=== PATIENT | female | born 1990 | race Caucasian/White ===

== ENCOUNTER 2021-12-03 17:34 | Emergency (ER) | payer BC, MEDICAID, SELFPAY ==
--- NOTE | ~2021-12-03 | XR_ITS ---
EXAMINATION: XR chest 1V portable DATE: 12/03/2021 18:50 INDICATION: Shortness of breath. Cough. TECHNIQUE: A single frontal view of the chest was obtained. COMPARISON: None. FINDINGS: The chest demonstrates clear lungs without pneumonia, pleural effusion, or pneumothorax. Th e heart size is normal. IMPRESSION: 1. No acute cardiopulmonary disease. Reviewed, dictated and finalized at location A.
[2021-12-03 17:37] VITALS: BP 120/79; PULSE 87; RESP 14; TEMP 36.1; O2SAT 97
--- NOTE | 2021-12-03 18:11 | ED_ITS ---
HPI - URI/Sore Throat General Chief Complaint: Upper Respiratory Infection Stated Complaint: Respiratory issues Time Seen by Provider: 12/03/21 18:05 History of Present Illness HPI Narrative: 31-year-old female presents emergency room complaints of shortness of breath, cough, wheezing for the past few days. Patient states that she has been using her rescue inhaler 3-4 times daily with some relief. Patient does have a history of asthma, and states that she typically does not use her rescue inhaler. Patient is also complaining of sinus congestion and postnasal drip. Patient denies chest pain, denies fever. Related Data Allergies Allergy/AdvReac Type Severity Reaction Status Date / Time latex Allergy Anaphylaxis Verified 12/03/21 18:55 Review of Systems Review of Systems: CONSTITUTIONAL: Denies fever, chills, or sweats. EYES: Denies visual changes, redness, or discharge. ENT: Denies rhinorrhea, congestion, sore throat, or otalgia. CARDIOVASCULAR: Denies chest pain, palpitations, or edema. RESPIRATORY: Reports cough and shortness of breath GASTROINTESTINAL: Denies abdominal pain, nausea, vomiting, or diarrhea. GENITOURINARY: Denies dysuria or hematuria. SKIN: Denies rash or itching. MUSCULOSKELETAL: Denies back pain, joint pain, or myalgia. NEUROLOGIC: Denies headache, numbness, dizziness, or weakness. PSYCHIATRIC: Denies anxiety or depression. [facility] Past Medical History Medical History (Updated 12/04/21 @ 09:26 by Marek Dixon, PATIENT FINANCIAL SERVICES SPECIALIST) Asthma Exam Narrative: GENERAL: Well-appearing, well-nourished, and in no acute distress. HEAD: Normocephalic, atraumatic. EYES: PERRLA and EOMI. CHEST: Wheezing to left upper lung field no respiratory distress. HEART: Regular rate and rhythm. No murmur heard. Normal peripheral pulses. ABDOMEN: Soft, nontender, nondistended, normal active bowel sounds. EXTREMITIES: Normal range of motion. No edema. SKIN: Warm, dry, no rash. NEURO: No focal deficits. Alert and oriented x3. PSYCH: Normal mood and affect. Course Vital Signs Vital signs: Vital Signs Temperature 36.1 C L 12/03/21 17:37 Pulse Rate 87 12/03/21 17:37 Respiratory Rate 14 12/03/21 17:37 Blood Pressure 120/79 05/13/22 17:37 Pulse Oximetry 97 12/03/21 17:37 Temperature 36.1 C L 12/03/21 17:37 Pulse Rate 91 12/03/21 19:47 Respiratory Rate 18 12/03/21 19:47 Blood Pressure 109/66 12/03/21 19:47 Pulse Oximetry 100 12/03/21 19:47 MDM - URI/Sore Throat Lab Data Labs: Lab Results 12/03/21 Range/Units 18:28 SARS-CoV-2 RNA (RT-PCR) Negative Discharge Plan Discharge Clinical Impression: Asthma exacerbation, Upper respiratory infection Patient Disposition: Home, Self-Care Condition: Stable Instructions: Antibiotic Form, Asthma (ED) Prescriptions: New albuterol sulfate 90 mcg/actuation HFA aerosol inhaler 1 inh inhalation QID Qty: 8.5 RF: 0 prednisone 20 mg tablet 40 mg PO DAILY 5 Days Qty: 10 RF: 0 Follow-up/Referrals: PHYSICIAN NOT ON STAFF,NONSTAFF [Primary Care Provider] - Time of Disposition: 19:28
[2021-12-03] MEDS: ALBUTEROL SULFATE NEB 2.5 MG/3 ML INH INHALATION ×2 (18:24→18:35)
[2021-12-03] MEDS: IPRATROPIUM BR 0.02% INH SOLN 0.5 MG/2.5 ML VIAL INHALATION (18:24)
[2021-12-03 19:09] LABS: SARS-CoV-2 RNA PCR Negative
[2021-12-03 19:47] VITALS: BP 109/66; PULSE 91; RESP 18; O2SAT 100
--- NOTE | 2021-12-03 19:49 | PC.NURSE ---
this rn spoke with rt to clarify that the medications were all given and that the patient was able to be discharged. per male rt, all meds were given and the charting would be corrected.
== END 2021-12-03 19:49 | disposition home or self-care (01) ==
PROVIDERS: Emergency Provider Nurse Practitioner Family
DX: J45.901 Unspecified asthma with (acute) exacerbation (principal); J06.9 Acute upper respiratory infection, unspecified; Z20.822 Contact with and (suspected) exposure to COVID-19
CPT/HCPCS: 71045; 94640; 96372; 99283; C9803; J1100; U0003; U0005

== ENCOUNTER 2023-05-10 07:55 | Day surgery (SDC) | payer BC, MEDICAID, SELFPAY ==
[2023-05-10] VITALS (12 sets, daily range): BP systolic 97–162; BP diastolic 53–92; PULSE 51–71; RESP 12–24; TEMP 36.3–36.6; O2SAT 96–100
--- NOTE | ~2023-05-10 | CT_ITS ---
EXAMINATION: CT abdomen pelvis w con DATE: 05/10/2023 10:07 INDICATION: Left flank and left lower quadrant abdominal pain TECHNIQUE: Computed tomography (CT) of the abdomen and pelvis was performed with 100 CC Omnipaque 350 intravenous contrast. Automated exposure control and iterative reconstruction technique were employe d. Exam dose: 382.90 mGy-cm total exam DLP. COMPARISON: None. FINDINGS: The lung bases are clear of infiltrate or consolidation. Left lower lobe probable calcified pulmonary granulomas. Normal heart size. No pericardial or pleural effusion. Small sliding hiatal hernia. The liver, gallbladder, bile ducts, spleen, pancreas, pancreatic duct and adrenal glands appear chiquita l. There is an approximately 2 mm distal left ureteral calculus with moderate left hydroureteronephrosis . There is perinephric and periureteral fluid on the left. Numerous bilateral nonobstructing renal calculi. No right ureteral calculus or right-sided hydrourete ronephrosis. The urinary bladder, uterus and adnexal areas are unremarkable. Normal caliber of the abdominal aorta. No intraperitoneal or retroperitoneal or pelvic mass lesion or adenopathy or ascites. Normal appendix. No bowel obstruction or intraperitoneal free air. Small fat-containing umbilical hernia. Included skeletal structures are unremarkable. IMPRESSION: 2 mm distal left ureteral obstructing calculus with moderate left hydronephrosis and lef t perinephric and periureteral fluid Reviewed, dictated and finalized at Location [facility]. Reviewed, dictated and finalized at location B. IMPRESSION: 2 mm distal left ureteral obstructing calculus with moderate left hydronephrosis and left perinephric and periureteral fluid
--- NOTE | ~2023-05-10 | XR_ITS ---
EXAMINATION: XR retrograde pyelogram LT DATE: 05/10/2023 16:18 INDICATION: Left ureteral stone. TECHNIQUE: 6 intraoperative fluoroscopic views of the abdomen and pelvis were obtained. I was not pre sent. Fluoroscopy exposure time was 22 seconds. COMPARISON: CT abdomen and pelvis 05/10/2023 FINDINGS: The left-sided retrograde pyelogram is unremarkable. IMPRESSION: 1. Normal left-sided retrograde pyelogram. Reviewed, dictated and finalized at location E.
[2023-05-10 09:14] LABS: Basophils Absolute Auto 0.1 K/mm3 (0.0-0.1); Basophils Percent Auto 0.3 % (0.2-1.2); Eosinophils Absolute Auto 0.2 K/mm3 (0-0.3); Eosinophils Percent Auto 1.6 % (0-4.4); Hematocrit 41.4 % (37.0-47.0); Hemoglobin 13.2 g/dL (12.0-15.0); Immature Granulocyte Absolute 0.07 K/mm3 (0.00-0.031); Immature Granulocyte Percent A 0.5 % (0-0.5); Lymphocytes Absolute Auto 1.32 K/mm3 (0.9-3.2); Lymphocytes Percent Auto 8.9 % (18.3-44.2); Mean Corpuscular HGB Conc 31.9 g/dl (32-36); Mean Corpuscular Hemoglobin 29.5 pg (26-34); Mean Corpuscular Volume 92.4 fl (80-100); Mean Platelet Volume 10.6 fl (7.4-10.4); Monocytes Absolute Auto 0.8 K/mm3 (0.1-0.6); Monocytes Percent Auto 5.4 % (2.6-8.5); Neutrophils Absolute Auto 12.3 K/mm3 (1.3-6.7); Neutrophils Percent Auto 83.3 % (45.5-73.1); Platelet Count Result 248 k/mm3 (150-375); Red Blood Count 4.48 M/mm3 (4.2-5.4); Red Cell Distribution Width 12.2 % (11.5-14.5); White Blood Count 14.8 K/mm3 (4.5-10.0)
[2023-05-10 09:24] LABS: Alanine Aminotransferase 32 U/L (6-35); Albumin Level 4.7 g/dL (3.5-5.1); Alkaline Phosphatase 115 U/L (38-126); Anion Gap 11 mmol/L (8-16); Aspartate Amino Transferase 31 U/L (14-36); Bilirubin,Total 0.8 mg/dL (0.2-1.3); Blood Urea Nitrogen 18 mg/dL (7-17); Calcium 9.8 mg/dL (8.4-10.2); Carbon Dioxide 25 mmol/L (22-30); Chloride 104 mmol/L (98-107); Estimated CRCL calculation 84 ml/min; Estimated Glomerular Filt Rate > 60; Glucose 125 mg/dL (65-110); Potassium 3.8 mmol/L (3.4-5.0); Sodium 140 mmol/L (137-145)
[2023-05-10] MEDS: SODIUM CHLORIDE 0.9% IV 1,000 ML 999 ML IV CONT ×2 (09:45→11:02)
--- NOTE | 2023-05-10 09:50 | ED.ABDPAIN ---
HPI - Abdominal Pain General Chief Complaint: Abdominal Pain Stated Complaint: low back and abd pain Time Seen by Provider: 05/10/23 09:08 History of Present Illness HPI narrative: 32-year-old female reports for evaluation for sudden onset left flank pain and left lower quadrant abdominal pain this morning. She reports associated nausea, no emesis. Denies chest pain or shortness of breath, fever, dysuria or hematuria, history of kidney stones. Patient states she is currently breast-feeding. She had a 7 months ago that was complicated by hematoma and had to undergo surgical evacuation. She has not had any complications since. Denies vaginal bleeding. Related Data Allergies Allergy/AdvReac Type Severity Reaction Status Date / Time latex Allergy Anaphylaxis Verified 05/10/23 08:09 Review of Systems Review of Systems: CONSTITUTIONAL: Denies fever, chills EYES: Denies visual changes, redness, or discharge. ENT: Denies rhinorrhea, congestion, sore throat, or otalgia. CARDIOVASCULAR: Denies chest pain, palpitations, or edema. RESPIRATORY: Denies cough or dyspnea. GASTROINTESTINAL: See HPI GENITOURINARY: Denies dysuria or hematuria. SKIN: Denies rash or itching. MUSCULOSKELETAL: See HPI NEUROLOGIC: Denies headache, numbness, dizziness, or weakness. PSYCHIATRIC: Denies anxiety or depression. [facility] Past Medical History Medical History Asthma Post depression Surgical History Surgical History S/P bone graft S/P Family History Family History Father High cholesterol Cancer Mother Hypertension Other Hypertension Social History Social History Smoking status: Never smoker Alcohol intake: current Exam Narrative: GENERAL: Patient resting in exam bed, appears uncomfortable. Nontoxic appearing. HEAD: Normocephalic EYES: PERRLA ENT: Nares clear. Mucous membranes moist. Oropharynx without tonsillar hypertrophy exudate or other lesions. NECK: Supple. CHEST: No respiratory distress. Clear to auscultation, no adventitious breath sounds. HEART: Regular rate and rhythm. No murmur heard. Normal peripheral pulses. ABDOMEN: Normal active bowel sounds. Abdomen soft with tenderness in the left lower quadrant. Positive left CVA tenderness. No rebound, guarding or rigidity. EXTREMITIES: Normal range of motion. No edema. SKIN: Warm, dry, no rash. NEURO: No focal deficits. Alert and oriented x3. PSYCH: Normal mood and affect. Course Vital Signs Vital signs: Vital Signs Temperature 98 F 05/10/23 07:58 Pulse Rate 65 05/10/23 07:58 Respiratory Rate 24 H 05/10/23 07:58 Blood Pressure 132/84 05/10/23 07:58 Pulse Oximetry 100 05/10/23 07:58 Oxygen Delivery Room Air 05/10/23 07:58 Temperature 98 F 05/10/23 07:58 Pulse Rate 65 05/10/23 07:58 Respiratory Rate 24 H 05/10/23 07:58 Blood Pressure 132/84 05/10/23 07:58 Pulse Oximetry 100 05/10/23 07:58 Oxygen Delivery Room Air 05/10/23 07:58 MDM - Abdominal Pain MDM Narrative Medical decision making narrative: 32-year-old female reports for evaluation for sudden onset left flank pain and left lower quadrant abdominal pain since this morning. See HPI for further history. Vital stable other than tachypnea of 24 on intake. She is afebrile but appears uncomfortable. Exam is significant for the above. Labs significant for leukocytosis of 14.8. Chemistries are largely unremarkable. Urinalysis shows hematuria and 1+ leuk esterase, no WBCs or bacteria. negative. Lipase normal. CT abdomen pelvis shows a 2 mm distal left ureteral obstructing calculus with moderate left hydronephrosis and left perinephric and periureteral fluid. Patient received Zofran, morp
[2023-05-10 10:06] LABS: Appearance Urine Cloudy (Clear); Bacteria Urine None Seen /hpf; Bilirubin Urine Negative (Negative); Blood Urine 3+ (Negative); Color Urine Yellow (Yellow); Glucose Urine UA Negative (Negative); Ketones Urine Negative (Negative); Leukocyte Esterase Ur 1+ LEU/UL (Negative); Need Manual Microscopic Reviewed; Nitrate Urine Negative (Negative); Non Pathogenic Casts 0-2; Protein Urine Negative (Negative); RBC Urine >100 /hpf (0-2); Specific Grav Ur 1.017 (1.001-1.035); Squamous Epithelial Cell Urine Occasional /hpf (Few); Urobilinogen Urine 0.2 mg/dL (<2.0); WBC Urine 0-5 /hpf; pH Urine 7.5 (5.0-9.0)
[2023-05-10 10:08] LABS: Add Urine Microscopic? YES
[2023-05-10] MEDS: ONDANSETRON INJ 4 MG/2 ML VIAL IV PUSH (10:09)
[2023-05-10] MEDS: MORPHINE SULFATE (*CRX) 4 MG/ML INJ IV PUSH (10:09)
[2023-05-10 10:28] LABS: Lipase 143 U/L (23-300)
[2023-05-10] MEDS: HYDROmorphone HCL INJ (*CRX) 1 MG/ML SYR 0.5 MG IV PUSH ×2 (11:02→13:05)
[2023-05-10] MEDS: LACTATED RINGERS 1,000 ML 30 ML IV CONT ×2 (12:00→16:21)
[2023-05-10] MEDS: ACETAMINOPHEN 500 MG TABLET 1000 MG PO (12:25)
--- NOTE | 2023-05-10 12:50 | WPDURCON ---
Assessment and Plan Assessment and plan (1) Ureterolithiasis: Code(s): N20.1 - Calculus of ureter Status: Acute Assessment and Plan: Pt. to have a Cystoscopy, left ureteroscopy with stone extraction, possible left stent placement, left retrograde pyelogram, possible holmium laser. Keep NPO. Obtain Consent. Pt. will be discharged home afterward. Urology Consult Note HPI Date Seen: 05/10/23 Time Seen: 12:51 Requesting Physician: Nicole Mcdonald MD Primary Care Provider: PHYSICIAN NOT ON STAFF Consult Narrative Reason for consult: Left Ureteral Stone Narrative: Margareth Winkler is a 32 year old female who presented to the ER today with worsening left flank pain that started 2 months ago. She is 7 months post and breast feeding and assumed she had back pain therefore she had been getting massages and has been seeing a chiropractor but has had no improvement. She woke up early this morning to pump and had severe left flank pain associated with nausea, chills and diaphoresis. She denies hematuria, dysuria, frequency, urgency to urinate or abdominal pain. She is afebrile and has a WBC of >14,000 and UA that shows RBC's and 1+ leukocytes. Her CT scan reveals a?2 mm distal left ureteral obstructing calculus with moderate left hydronephrosis and left perinephric and periureteral fluid. She has no history of kidney stones and drinks plenty of water. Review of Systems Cardiovascular: Cardiovascular: Denies chest pain Respiratory: Respiratory: Reports no additional respiratory complaints Gastrointestinal: Gastrointestinal: Denies abdominal pain, Reports nausea and Denies vomiting Genitourinary: Genitourinary: Denies hematuria, Denies nocturia, Denies dysuria, Reports flank pain, Denies urinary incontinence, Denies urinary hesitancy and Denies urinary urgency [facility] Past Medical History Medical History Asthma Post depression Surgical History Surgical History S/P bone graft S/P Family History Family History Father High cholesterol Cancer Mother Hypertension Other Hypertension Social History Social History Smoking status: Never smoker Alcohol intake: current Meds Home Medications and Allergies Home Medications Medication Instructions Recorded Confirmed Type hydrocodone 5 mg-acetaminophen 325 1 tablet PO Q4H PRN pain #5 tabs 08/25/22 08/25/22 Rx mg tablet Allergies Allergy/AdvReac Type Severity Reaction Status Date / Time latex Allergy Anaphylaxis Verified 05/10/23 08:09 Vital Signs Vital Signs - 24 hr 05/10/23 07:58 05/10/23 11:01 05/10/23 11:16 Temperature 98 F Pulse Rate 65 Respiratory Rate 24 H Blood Pressure 132/84 145/85 H 154/91 H Pulse Oximetry 100 100 97 Oxygen Delivery Room Air 05/10/23 11:30 05/10/23 11:46 Temperature Pulse Rate Respiratory Rate Blood Pressure 150/92 H 162/83 H Pulse Oximetry 96 97 Oxygen Delivery Exam Const: General: cooperative and in distress; No lethargic Resp: Effort & Inspection: normal respiratory effort Cardio: Rate: regular rate GI: GI Palp: Yes Soft to palpation and No Tenderness to palpation present (GI) : General: Yes CVA tenderness on the left Extrem: Right lower extremity: no edema Left lower extremity: no edema Results Labs 05/10/23 09:07 05/10/23 09:07 Labs: Short CBC 05/10/23 Range/Units 09:07 WBC 14.8 H (4.5-10.0) K/mm3 Hgb 13.2 (12.0-15.0) g/dL Hct 41.4 (37.0-47.0) % Plt Count 248 (150-375) k/mm3 BMP 05/10/23 09:07 Sodium 140 Potassium 3.8 Chloride 104 Carbon Dioxide 25 BUN 18 H Creatinine 0.80 Glucose 125 H Calcium 9.8 Liver Function 10
--- NOTE | 2023-05-10 12:57 | WPDHPUPDATE1 ---
History and Physical Update Update Date/Time: 05/10/23 12:57 History and Physical has been reviewed, including an updated exam of the patient. There are NO changes in the patient's condition. Risks, benefits, and alternatives have been discussed and questions answered. Patient agrees to proceed with procedure.
--- NOTE | 2023-05-10 13:12 | WPDANESEPPF ---
Anes - Initial Pre Proc Eval Procedure: Operation Date: 05/10/23 15:00 Proposed Procedures p Cystoscopy,Left Retrograde Pyelogram,Left Ureteroscopy,Left Stone Extraction,Possible Holmium Laser,Possible Stent Placement. - Nicole Mcdonald MD Date/Time: 05/10/23 13:12 Surgeon: Nicole Mcdonald MD Pre Op Diagnosis: low back and abd pain Patient Data Age: 32 Gender: F Height: 1.7 m Weight: 72.57 kg Last Vital Signs Temp 36.3 C L 05/10/23 12:50 Pulse 52 L 05/10/23 12:50 Resp 16 05/10/23 12:50 BP 152/85 H 05/10/23 12:50 Pulse Ox 98 05/10/23 12:50 O2 Del Method Room Air 05/10/23 07:58 Allergies Allergy/AdvReac Type Severity Reaction Status Date / Time latex Allergy Anaphylaxis Verified 05/10/23 08:09 Home Medications Medication Instructions Recorded Confirmed Type hydrocodone 5 mg-acetaminophen 325 1 tablet PO Q4H PRN pain #5 tabs 08/25/22 08/25/22 Rx mg tablet Laboratory Tests 05/10/23 05/10/23 09:07 09:47 WBC 14.8 H K/mm3 (4.5-10.0) RBC 4.48 M/mm3 (4.2-5.4) Hgb 13.2 g/dL (12.0-15.0) Hct 41.4 % (37.0-47.0) MCV 92.4 fl (80-100) MCH 29.5 pg (26-34) MCHC 31.9 L g/dl (32-36) RDW 12.2 % (11.5-14.5) Plt Count 248 k/mm3 (150-375) MPV 10.6 H fl (7.4-10.4) Immature Gran % (Auto) 0.5 % (0-0.5) Neut % (Auto) 83.3 H % (45.5-73.1) Lymph % (Auto) 8.9 L % (18.3-44.2) [place] % (Auto) 5.4 % (2.6-8.5) Eos % (Auto) 1.6 % (0-4.4) Baso % (Auto) 0.3 % (0.2-1.2) Lymph # (Auto) 1.32 K/mm3 (0.9-3.2) [place] # (Auto) 0.8 H K/mm3 (0.1-0.6) Eos # (Auto) 0.2 K/mm3 (0-0.3) Baso # (Auto) 0.1 K/mm3 (0.0-0.1) Abs Immat Gran (auto) 0.07 H K/mm3 (0.00-0.031) Absolute Neuts (auto) 12.3 H K/mm3 (1.3-6.7) Absolute Nucleated RBC 0.0 K/mm3 (0.0-0.012) Nucleated RBC % 0.0 % (0.0-0.2) Sodium 140 mmol/L (137-145) Potassium 3.8 mmol/L (3.4-5.0) Chloride 104 mmol/L (98-107) Carbon Dioxide 25 mmol/L (22-30) Anion Gap 11 mmol/L (8-16) BUN 18 H mg/dL (7-17) Creatinine 0.80 mg/dL (0.7-1.0) Estim Creat Clear Calc 84 ml/min Estimated GFR > 60 (59 - ) Glucose 125 H mg/dL (65-110) Calcium 9.8 mg/dL (8.4-10.2) Total Bilirubin 0.8 mg/dL (0.2-1.3) AST 31 U/L (14-36) ALT 32 U/L (6-35) Alkaline Phosphatase 115 U/L (38-126) Total Protein 8.0 g/dL (6.3-8.2) Albumin 4.7 g/dL (3.5-5.1) Lipase 143 U/L (23-300) Urine Color Yellow (Yellow) Urine Appearance Cloudy H (Clear) Urine pH 7.5 (5.0-9.0) Ur Specific [place] 1.017 (1.001-1.035) Urine Protein Negative mg/dL (Negative) Urine Glucose (UA) Negative mg/dL (Negative) Urine Ketones Negative mg/dL (Negative) Ur Blood (Man) 3+ H (Negative) Urine Nitrate Negative (Negative) Urine Bilirubin Negative (Negative) Urine Urobilinogen 0.2 mg/dL (<2.0) Add Ur Microanalysis Reviewed Leukocyte Esterase Rfl 1+ H JACQUIE/UL (Negative) Urine RBC >100 H /hpf (0-2) Urine WBC 0-5 /hpf Ur Squamous Epith Cells Occasional /hpf (Few) Urine Bacteria None seen /hpf Urine Casts 0-2 Patient hx anesthesia problems: none Family hx anesthesia problems: none Results Review: All pre-operative results and documents have been reviewed as part of the pre-operative evaluation. [facility] Past Medical History Medical History (Updated 05/10/23 @ 13:13 by Harsh Perez MD) Asthma Post depression Ureterolithiasis Surgical History Surgical History S/P bone graft S/P Family History Family History (Reviewed
[2023-05-10] MEDS: ceFAZolin 2 GM/D5W 50 ML 2 GM/50 ML BAG IVPB (16:00)
[2023-05-10] MEDS: LIDOCAINE HCL 2% GEL UROJET 10 ML PKG MUCOUS MEM (16:12)
--- NOTE | 2023-05-10 16:21 | W.PM.PROC2 ---
Procedure Note - Detailed Date of Procedure 05/10/23 Pre-op Diagnosis Left ureteral stone Post-op Diagnosis Same Procedure Performed Cystoscopy, left retrograde pyelogram, bladder stone removal Surgeon Nicole Mcdonald MD Anesthesia General Findings -stone passed into the bladder by the time of surgery -left retrograde pyelogram demonstrating a delicate ureter, minimal hydronephrosis, no extravasation, prompt clearance of contrast from the ureter Description of Procedure Informed consent was obtained. Patient in the operating. She was given preoperative IV antibiotics. She was induced anesthesia issues patient with anesthesia. A 22 F cystoscope was inserted through the urethra into the bladder. We noted a 3mm stone in the bladder. There were no other abnormal findings. Stone was removed with a Zero tip basket and sent as specimen. A left Retrograde pyelogram was performed demonstrating a delicate ureter, minimal hydronephrosis, no extravasation, prompt clearance of contrast from the ureter. The bladder was then emptied lidocaine was inserted through the urethra into the bladder. The patient was then awakened taken recovery room stable condition Pathology Yes Complications No immediate complications Condition Stable Disposition PACU
== END 2023-05-10 18:00 | disposition home or self-care (01) ==
LOC: ANHED 11:34 → ANHSURGERY 11:35
PROVIDERS: Emergency Medicine; Emergency Provider Physician Assistant; Visit Provider Urology
PROC: (CPT 52352; principal; 2023-05-10 15:00)
DX: N13.2 Hydronephrosis with renal and ureteral calculous obstruction (principal)
CPT/HCPCS: 52352; 36415; 74177; 74420; 80053; 81001; 81025; 82365; 83690; 85025; 88300; 96361; 96374; 96375; 99285; A9270; C1769; J0690; J1100; J1170; J2250; J2270; J2405; J2704; J3010; J7030; J7120; Q9966; Q9967

== ENCOUNTER 2023-12-12 08:47 | Emergency (ER) | payer BC, SELFPAY ==
[2023-12-12 08:50] VITALS: BP 121/93; PULSE 75; RESP 18; TEMP 36.6; O2SAT 100
[2023-12-12 09:13] LABS: Appearance Urine Clear (Clear); Bacteria Urine None Seen /hpf; Bilirubin Urine Negative (Negative); Blood Urine Negative (Negative); Color Urine Yellow (Yellow); Glucose Urine UA Negative (Negative); Ketones Urine Negative (Negative); Leukocyte Esterase Ur 2+ LEU/UL (Negative); Nitrate Urine Negative (Negative); Non Pathogenic Casts 0-2; Protein Urine Negative (Negative); Specific Grav Ur 1.018 (1.001-1.035); Squamous Epithelial Cell Urine Few /hpf (Few); Urobilinogen Urine 0.2 mg/dL (<2.0); WBC Urine 21-50 /hpf (0-3)
[2023-12-12 09:14] LABS: Add Urine Microscopic? YES
[2023-12-12 09:49] LABS: Strep Group A RT-PCR NOT DETECTED (Negative)
--- NOTE | 2023-12-12 10:02 | ED.FEMALEGU ---
HPI - Female Genitourinary General Chief complaint: RESIDENTIAL APPRAISER Stated complaint: std check Time Seen by Provider: 12/12/23 08:55 History of Present Illness HPI Narrative: Patient reports that she had intercourse with her baby's father a few days ago and subsequently is having discomfort and discharge, she is quite concerned for STD. No other systemic symptoms Related Data Allergies Allergy/AdvReac Type Severity Reaction Status Date / Time latex Allergy Anaphylaxis Verified 05/10/23 08:09 Review of Systems Review of Systems: All systems reviewed & are unremarkable except as noted in HPI and below [facility] Past Medical History Medical History (Updated 12/12/23 @ 10:44 by Waleska Devries MD) Asthma Post depression Ureterolithiasis Surgical History Surgical History S/P bone graft S/P Family History Family History Father High cholesterol Cancer Mother Hypertension Other Hypertension Social History Social History Smoking status: Never smoker Alcohol intake: current Exam Narrative: EXAMINATION OF ORGAN SYSTEMS/BODY AREAS: Constitutional: Vital signs per nursing GENERAL:[No acute distress, non-toxic appearing.] HEAD: Normal with no signs of head trauma. EYES: EOMI, conjunctiva normal ENT: Hearing grossly intact LUNGS: Nonlabored breathing. HEART: [Regular rate and rhythm] ABD: [Soft], nontender abdomen : deferred EXT: Normal range of motion SKIN: [No rashes or lesions.] NEURO: [Alert and oriented x 3. No gross focal sensory or strength deficits.] PSYCH: Normal affect Course Vital Signs Vital signs: Vital Signs Temperature 98 F 12/12/23 08:50 Pulse Rate 75 12/12/23 08:50 Respiratory Rate 18 12/12/23 08:50 Blood Pressure 121/93 H 12/12/23 08:50 Pulse Oximetry 100 12/12/23 08:50 Oxygen Delivery Room Air 12/12/23 08:50 Temperature 98 F 12/12/23 08:50 Pulse Rate 75 12/12/23 08:50 Respiratory Rate 18 12/12/23 08:50 Blood Pressure 121/93 H 12/12/23 08:50 Pulse Oximetry 100 12/12/23 08:50 Oxygen Delivery Room Air 12/12/23 08:50 MDM - Female Genitourinary MDM Narrative Medical decision making narrative: 33-year-old female presenting here with concern for STDs, she has dysuria for the last few days. Well-appearing here, normal vital signs, abdomen soft nontender, test is negative, differential includes STDs, Bactrim vaginosis or yeast infection, UTI. Urinalysis is consistent with UTI, she started on antibiotics for this. Gonorrhea chlamydia here was negative and so was strep. Patient has appointment with a packer insulation in a couple weeks and is planning on getting swabs done there so deferring any further workup or treatment at this time. Stable for discharge at this time. Lab Data Labs: Lab Results 12/12/23 12/12/23 Range/Units 08:58 09:21 Urine Color Yellow (Yellow) Urine Appearance Clear (Clear) Urine pH 7.0 (5.0-9.0) Ur Specific [place] 1.018 (1.001-1.035) Urine Protein Negative (Negative) mg/dL Urine Glucose (UA) Negative (Negative) mg/dL Urine Ketones Negative (Negative) mg/dL Ur Blood (Man) Negative (Negative) Urine Nitrate Negative (Negative) Urine Bilirubin Negative (Negative) Urine Urobilinogen 0.2 (<2.0) mg/dL Leukocyte Esterase Rfl 2+ H (Negative) JACQUIE/UL Urine RBC 3-5 H (0-2) /hpf Urine WBC 21-50 H (0-3) /hpf Ur Squamous Epith Cells Few (Few) /hpf Urine Bacteria None seen /hpf Urine Casts 0-2 C. trachomatis (PCR) Not detected (NOT DETECTE) N. gonorrhoeae (PCR) Not detected (NOT DETECTE) Group A Strep (PCR) Not detected (Negative) UCG Bedside Result Negative Reference Range: Negative
[2023-12-12 10:38] LABS: Chlamydia trachomatis NOT DETECTED (NOT DETECTE); Neisseria gonorrhoeae PCR NOT DETECTED (NOT DETECTE)
[2023-12-12] MEDS: SULFAMETHOXAZOLE/TRIMETHOPRIM 800/160 MG DS TABLET 1 TAB PO (10:47)
== END 2023-12-12 10:54 | disposition home or self-care (01) ==
PROVIDERS: Emergency Provider Emergency Medicine
DX: N39.0 Urinary tract infection, site not specified (principal); J45.909 Unspecified asthma, uncomplicated
CPT/HCPCS: 81001; 81025; 87086; 87088; 87106; 87491; 87591; 87651; 99284; A9270